=== PATIENT | female | born 1970 | race Caucasian/White ===

== ENCOUNTER → 2021-06-11 | Outpatient (CLI) | payer MEDICARE ==
[~2021-06-11] MED LIST: ASPIRIN CHEWABL81 MG PO; CITRATE OF MAG296 ML PO
== END ==
LOC: KOH-I 08:47
DX: K76.0 Fatty (change of) liver, not elsewhere classified (principal); Z90.49 Acquired absence of other specified parts of digestive tract
CPT/HCPCS: 76705

== ENCOUNTER → 2021-06-21 | Outpatient (CLI) | payer MEDICARE | LOC: OPSV 08:54 | DX: M05.79 Rheumatoid arthritis with rheumatoid factor of multiple sites without organ or systems involvement (principal) | CPT/HCPCS: 96365; 96375; J0129; J1720 ==

== ENCOUNTER → 2021-07-05 | Outpatient (CLI) | payer MEDICARE ==
[~2021-07-05] VITALS: Ht 175.3 cm; Wt 121.1 kg
== END ==
LOC: OPSV 09:00
DX: M05.79 Rheumatoid arthritis with rheumatoid factor of multiple sites without organ or systems involvement (principal)
CPT/HCPCS: 96365; 96375; J0129; J1720

== ENCOUNTER 2021-08-01 10:32 | Emergency (ER) | payer MEDICARE ==
[~2021-08-01] VITALS: Ht 162.6 cm; Wt 117.5 kg
[2021-08-01 12:32] LABS: HEMOGLOBIN 15.4 gm/dl (12.3-15.3); RED BLOOD COUNT 5.38 M/UL (4.00-5.10); WHITE BLOOD COUNT 7.2 K/UL (4.5-11.0)
[2021-08-01 13:06] LABS: BUN/CREATININE RATIO 17 (0-10)
[2021-08-01] MEDS ORDERED: ALBUTEROL0.63 MG/3 INH (17:21)
[2021-08-01] MEDS ORDERED: DELSYM30 MG/5 ML PO (17:21)
== END 2021-08-01 19:49 | disposition home or self-care (01) ==
LOC: ER1 10:32
PROVIDERS: Physician Assistant Medical
DX: U07.1 COVID-19 (principal); Z23 Encounter for immunization; E11.9 Type 2 diabetes mellitus without complications; J45.909 Unspecified asthma, uncomplicated; Z90.49 Acquired absence of other specified parts of digestive tract; Z90.710 Acquired absence of both cervix and uterus
CPT/HCPCS: 71045; 80053; 81001; 83605; 85025; 87040; 96374; 99284; J2405; M0243; Q9967

== ENCOUNTER → 2021-08-14 | Outpatient (CLI) | payer MEDICARE ==
[~2021-08-14] MED LIST changes: +ALBUTEROL0.63 MG/3 INH; +DELSYM30 MG/5 ML PO
== END ==
LOC: OPSV 08-02 09:00
DX: M05.79 Rheumatoid arthritis with rheumatoid factor of multiple sites without organ or systems involvement (principal)
CPT/HCPCS: 96365; 96375; J0129; J1720

== ENCOUNTER → 2021-09-11 | Outpatient (CLI) | payer MEDICARE ==
[~2021-09-11] VITALS: Ht 175.3 cm; Wt 121.1 kg
== END ==
LOC: OPSV 09:00
DX: M05.79 Rheumatoid arthritis with rheumatoid factor of multiple sites without organ or systems involvement (principal)
CPT/HCPCS: 96365; 96375; J0129; J1720

== ENCOUNTER → 2021-10-09 | Outpatient (CLI) | payer MEDICARE, OTHER ==
[~2021-10-09] VITALS: Ht 175.3 cm; Wt 121.1 kg
== END ==
LOC: OPSV 08:21
DX: M05.79 Rheumatoid arthritis with rheumatoid factor of multiple sites without organ or systems involvement (principal)
CPT/HCPCS: 96365; 96375; J0129; J1720

== ENCOUNTER → 2021-11-12 | Outpatient (CLI) | payer MEDICARE ==
[~2021-11-12] VITALS: Ht 175.3 cm; Wt 121.1 kg
== END ==
LOC: OPSV 11-06 09:00
DX: M05.79 Rheumatoid arthritis with rheumatoid factor of multiple sites without organ or systems involvement (principal); M81.0 Age-related osteoporosis without current pathological fracture
CPT/HCPCS: 96365; 96375; J0129; J1720

== ENCOUNTER → 2022-01-08 | Outpatient (CLI) | payer MEDICARE ==
[~2022-01-08] VITALS: Ht 175.3 cm; Wt 121.1 kg
== END ==
LOC: OPSV 01-07 09:00
DX: M05.79 Rheumatoid arthritis with rheumatoid factor of multiple sites without organ or systems involvement (principal)
CPT/HCPCS: 96365; J0129

== ENCOUNTER → 2022-01-15 | Outpatient (CLI) | payer MEDICARE | LOC: EXRD 10:56 | DX: Z78.0 Asymptomatic menopausal state (principal); M81.0 Age-related osteoporosis without current pathological fracture | CPT/HCPCS: 77080 ==

== ENCOUNTER → 2022-01-22 | Outpatient (CLI) | payer MEDICARE | LOC: KOH-I 08:27 | DX: M54.2 Cervicalgia (principal); M54.6 Pain in thoracic spine; M47.812 Spondylosis without myelopathy or radiculopathy, cervical region; M47.814 Spondylosis without myelopathy or radiculopathy, thoracic region | CPT/HCPCS: 72040; 72070 ==

== ENCOUNTER → 2022-02-05 | Outpatient (CLI) | payer MEDICARE ==
[~2022-02-05] VITALS: Ht 175.3 cm; Wt 121.1 kg
== END ==
LOC: OPSV 11:50
DX: M05.79 Rheumatoid arthritis with rheumatoid factor of multiple sites without organ or systems involvement (principal)
CPT/HCPCS: 96365; J0129